=== PATIENT | male | born 1945 | race African-American/Black ===

== ENCOUNTER 2016-06-27 12:32 | Emergency (ER) | payer OTHER, MEDICARE ==
[~2016-06-27] VITALS: Ht 172.7 cm; Wt 82.6 kg
[~2016-06-27 12:32] MED LIST: CIPRO 500MG (E500 MG PO; COUMADIN 5 MG TA5 MG PO; COUMADIN 7.5 M7.5 MG PO; GLUCOPHAGE XR500 M1 PO; IMODIUM2 MG PO; LIPITOR80 M1 PO; METFORMIN HYDR750 MG PO; TARCEVA150 MG PO; TOPROL XL25 MG PO; VIAGRA25 M1 PO
[2016-06-27 12:36] VITALS: BP 147/87
--- NOTE | 2016-06-27 12:38 | ED UPPER/LOWER EXTREMITY COMPL ---
History of Present Illness General Chief Complaint: Lower Extremity Problems Stated Complaint: LFT KNEE PAIN Source: patient, family Exam Limitations: no limitations Vital Signs & Intake/Output Vital Signs & Intake/Output Vital Signs Date Time Temp Pulse Resp B/P Pulse O2 O2 Flow FiO2 Ox Delivery Rate 06/27 1236 98.2 59 18 147/87 99 Room Air ED Intake and Output 06/28 0000 06/27 1200 Intake Total 10 Output Total Balance 10 Intake, Oral 10 Patient 182 lb Weight Allergies Coded Allergies: NO KNOWN ALLERGIES (06/21/15) Reconcile Medications Atorvastatin Calcium (Lipitor) 80 MG TABLET 1 TAB PO DAILY CHOLESTEROL ( Reported) Folic Acid 1 MG TABLET 1 TAB PO DAILY SUPPLEMENT (Reported) Metformin HCl (Glucophage XR) 500 MG TAB.ER.24H 1 TAB PO BID DM (Reported) with food Metoprolol Succ XL (Toprol XL) 25 MG TAB 1 TAB PO DAILY HEART/BP (Reported) Pantoprazole Sodium (Protonix) 40 MG TABLET.DR 1 TAB PO DAILY GI (Reported) Warfarin Sodium 5 MG TABLET 1 TAB PO EOD BLOOD THINNER (Reported) Warfarin Sodium (Coumadin) 7.5 MG TABLET 1 TAB PO EOD BLOOD THINNER (Reported ) Triage Note: 71 Y/O MALE C/O L KNEE PAIN SINCE YESTERDAY; NO INJURY OR TRAUMA PER PT. FAMILY MEMBER CONCERNED ABOUT BLOOD CLOT. AMBULATORY WITH CRUTCHES FROM HOME. PT TOOK ADVIL WITH NO RELIEF. Triage Nurses Notes Reviewed? yes Onset: Abrupt Duration: day(s): (1) Severity: moderate Pain/Injury Location: Left: Leg, Knee. Method of Injury: unknown Associated Symptoms: swelling, stiffness HPI: 71 year old male who presents with left knee pain/swelling and leg swelling since yesterday. Patient denies trauma. No fever or chills. No erythema. Patient with history o f CVA on coumadin. Last INR 3.9. Past History Travel History Traveled to [place] past 21 day No Medical History Any Pertinent Medical History? see below for history Neurological: NONE EENT: NONE Cardiovascular: hypertension, HIGH CHOLESTEROL Respiratory: NONE Gastrointestinal: NONE Hepatic: NONE Renal: NONE Musculoskeletal: NONE Psychiatric: NONE Endocrine: diabetes Blood Disorders: NONE Cancer(s): LUNG CANCER Surgical History Surgical History: non-contributory Psychosocial History What is your primary language Faroese Tobacco Use: Never used Family History Hx Contributory? No Review of Systems Review of Systems Constitutional: Denies: chills, fever. EENTM: Reports: no symptoms. Respiratory: Denies: cough, short of breath. Cardiovascular: Reports: peripheral edema. Denies: chest pain, palpitations. Gastrointestinal/Abdominal: Reports: no symptoms. Genitourinary: Reports: no symptoms. Musculoskeletal: Reports: joint pain, joint swelling. Denies: muscle pain, muscle stiffness. Skin: Reports: no symptoms. Neurological/Psychological: Reports: no symptoms. Hematologic/Endocrine: Denies: bruising, bleeding, polyuria, polydipsia. Immunological: Denies: splenectomy. All Other Systems: Reviewed and Negative Physical Exam Physical Exam General Appearance: well developed/nourished, alert, awake, mild distress Head: atraumatic Eyes: Bilateral: PERRL, EOMI. Ears, Nose, Throat: normal pharynx, normal ENT inspection, hearing grossly normal Neck: normal inspection, supple Cardiovascular/Respiratory: regular rate/rhythm Back: normal inspection Leg Left: swelling Leg Right: normal range of motion, normal inspection Hip Left: normal range of motion, normal inspection Hip Right: normal range of motion, normal inspection Knee Left: normal range of motion, joint effusion (small suprapatellar), mild calf swelling Knee Right: normal range of motion, normal inspection Foot Left: normal inspection, normal range of motion Foot Right: normal inspection, normal range of motion Neurologic/Tendon: normal sensation, normal motor functions, normal tendon functions Skin: intact, normal color, warm/dry Lymphatic: no anterior cervical abby Progress Differential Diagnosis: DVT, arceo's cyst, fracture, sprain Plan of Care: Orders Procedure Date/time Status Durable Medical Equipment 06/27 1359 Active small suprapatellar effusion, full range of motin of the knee. mild calf swelling patient refusing any pain medications at this time. imaging negaitve for dvt/cyst or fracture. mild swelling. patient comfortable with full range of motion of knee. no indication at this time for joint aspiration. knee immobilizer placed, will follow up with orthopedics. (MERARY FLORES,MARANDA) Diagnostic Imaging: Viewed by Me: Radiology Read, Ultrasound. Discussed w/RAD: Radiology Read, Ultrasound. Radiology Impression: PATIENT: VICTOR M GALINDO PRESENT AGE: 71 PATIENT ACCOUNT NO: [id number] : 46 LOCATION: [facility] ORDERING PHYSICIAN: MARANDA REAGAN MD SERVICE DATE: 06/27/16 EXAM TYPE: US - US- UNILATERAL VENOUS DOPPLER EXAMINATION: US TRIPLEX LOWER EXTREMITY, LEFT CLINICAL INFORMATION: Left leg swelling. Calf swelling. COMPARISON: None. TECHNIQUE: Color-flow triplex imaging with spectral analysis and compression Doppler were performed on the left lower extremity. FINDINGS: Respiratory variation, normal compression and augmented flow are noted throughout the lower extremity. The visualized common femoral vein, superficial femoral vein, profunda femoral vein, popliteal vein and midcalf peroneal and posterior tibial venous segments show no evidence of deep venous thrombosis. There are no focal fluid collections. IMPRESSION: 1. Normal triplex scan without evidence of deep venous thrombosis involving the left lower extremity. 2. There are no focal fluid collections. DICTATED BY: TEO STEPHEN MD DATE/TIME DICTATED:06/27/161322 MULT[employer] CRAFT MAINTENANCE TECHNICIAN :NATALY DATE/TIME TRANSCRIBED:06/27/161322 CONFIDENTIAL, DO NOT COPY WITHOUT APPROPRIATE AUTHORIZATION. <Electronically signed in Other Vendor System> SIGNED BY: TEO STEPHEN MD 06/27/16 1333, PATIENT: VICTOR M GALINDO PRESENT AGE: 71 PATIENT ACCOUNT NO: [id number] : LOCATION: [facility] ORDERING PHYSICIAN: MARANDA REAGAN MD SERVICE DATE: EXAM TYPE: RAD - XRY-KNEE COMPLETE LEFT EXAMINATION: XR KNEE, LEFT CLINICAL INFORMATION: Left knee pain. Swelling. COMPARISON: None. TECHNIQUE: Four views of the left knee. FINDINGS: There is normal alignment of the patellofemoral and knee joints. There is narrowing of the medial compartment of the knee joint with medial spurs. No fractures are demonstrated. There are no radiopaque foreign bodies. There is a suprapatellar joint effusion. IMPRESSION: 1. There are no fractures or subluxations. 2. There is a suprapatellar joint effusion. DICTATED BY: TEO STEPHEN MD DATE/TIME DICTATED:06/27/161322 MULTI CRAFT MAINTENANCE TECHNICIAN:NATALY DATE/TIME TRANSCRIBED:06/27/161322 CONFIDENTIAL, DO NOT COPY WITHOUT APPROPRIATE AUTHORIZATION. <Electronically signed in Other Vendor System> SIGNED BY: TEO STEPHEN MD 06/27/16 1338 Departure Departure Time of Disposition: 1358 Disposition: HOME OR SELF CARE Condition: Stable Clinical Impression Primary Impression: Joint effusion Referrals: KIKA FLORES,WALDEMAR KRAMER MD,CINDY (PCP/Family) Additional Instructions: USE THE KNEE IMMOBILIZER DIRECTED AND FOLLOW UP WITH THE GARAGE SUPERVISOR LISTED. ICE, REST AND ELEVATE THE LEG. TAKE THE PAIN MEDICATION INSTRUCTED. RETURN FOR ANY CHANGING OR WORSENING SYMPTOMS. Departure Forms: Customer Survey General Discharge Information Procedures Splinting Location: LEFT KNEE IMMOBILIZER
--- NOTE | 2016-06-27 13:33 | ULTRASOUND REPORT ---
EXAMINATION: US TRIPLEX LOWER EXTREMITY, LEFT CLINICAL INFORMATION: Left leg swelling. Calf swelling. COMPARISON: None. TECHNIQUE: Color-flow triplex imaging with spectral analysis and compression Doppler were performed on the left lower extremity. FINDINGS: Respiratory variation, normal compression and augmented flow are noted throughout the lower extremity. The visualized common femoral vein, superficial femoral vein, profunda femoral vein, popliteal vein and midcalf peroneal and posterior tibial venous segments show no evidence of deep venous thrombosis. There are no focal fluid collections. IMPRESSION: 1. Normal triplex scan without evidence of deep venous thrombosis involving the left lower extremity. 2. There are no focal fluid collections.
--- NOTE | 2016-06-27 13:38 | RADIOLOGY REPORT ---
EXAMINATION: XR KNEE, LEFT CLINICAL INFORMATION: Left knee pain. Swelling. COMPARISON: None. TECHNIQUE: Four views of the left knee. FINDINGS: There is normal alignment of the patellofemoral and knee joints. There is narrowing of the medial compartment of the knee joint with medial spurs. No fractures are demonstrated. There are no radiopaque foreign bodies. There is a suprapatellar joint effusion. IMPRESSION: 1. There are no fractures or subluxations. 2. There is a suprapatellar joint effusion.
[2016-06-27] MEDS ORDERED: TOPROL XL25 M1 PO (13:47)
[2016-06-27] MEDS ORDERED: COUMADIN7.5 M1 PO (13:49)
[2016-06-27] MEDS ORDERED: WARFARIN SODIUM5 M1 PO (13:49)
[2016-06-27] MEDS ORDERED: PROTONIX40 M3 PO (13:50)
[2016-06-27] MEDS ORDERED: FOLIC ACID1 M1 PO (13:50)
== END 2016-06-27 14:25 ==
LOC: ERH 12:32
DX: M25.462 Effusion, left knee (principal); M79.662 Pain in left lower leg; Z86.73 Personal history of transient ischemic attack (TIA), and cerebral infarction without residual deficits; Z79.01 Long term (current) use of anticoagulants; M25.662 Stiffness of left knee, not elsewhere classified
CPT/HCPCS: 73562-LT